=== PATIENT | female | born 1960 | race Caucasian/White ===

== ENCOUNTER 2018-01-07 08:11 | Inpatient (IN) | payer OTHER, SELFPAY ==
[2017-12-24 13:36] VITALS: BP 144/72; PULSE 81; RESP 16; TEMP 37.2; O2SAT 95; BMI 46.3
--- NOTE | 2017-12-24 13:45 | SDCEKG_ITS ---
Test Reason : Blood Pressure : / mmHG Vent. Rate : 062 BPM Atrial Rate : 062 BPM P-R Int : 182 ms QRS Dur : 074 ms QT Int : 384 ms P-R-T Axes : 053 020 058 degrees QTc Int : 389 ms Normal sinus rhythm Normal ECG Confirmed by ROEL MAYNARD MD ([id number]), editor book KATHI LAU ([id number]) on 12/28/2017 9:33:43 AM Referred By: Reddy Garcia Confirmed By:ROEL MAYNARD MD
[2017-12-24 14:15] LABS: Hemoglobin 12.5 g/dl (12.0-15.0); Mean Corp Hgb Conc 30.5 g/gl (32-36); Mean Corpuscular Hgb 24.8 pg (27.0-32.0); Mean Corpuscular Volume 81.3 fL (81-99); Mean Platelet Vol. 9.3 fl (6.2-12.0); Platelet Count 227 K/mm3 (150-450); RBC Distribution Width CV 13.7 % (11.6-14.6); RBC Distribution Width SD 40.7 fl (35.1-43.9); Red Blood Count 5.04 M/mm3 (4.2-5.4); White Blood Count 5.1 K/mm3 (4.4-11.0)
[2017-12-24 14:16] LABS: Scan Indicated on CBC? Y/N NO
[2017-12-24 14:38] LABS: Anion Gap 9 (5-15); BUN 14 mg/dL (7-18); BUN/Creat Ratio 12.2 RATIO (10-20); Calcium,Total 8.5 mg/dL (8.5-10.1); Chloride 106 mmol/L (98-107); Creatinine, Serum 1.15 mg/dL (0.55-1.02); EST Glomerular Filtration Rate 51 mL/min (>60); Est Glom Filt Rate - Afr Amer 62 mL/min (>60); Estimated Creatinine Clearance 45.48 ml/min; Glucose 93 mg/dL (74-106); Sodium Level 141 mmol/L (136-145)
[2018-01-07] VITALS (13 sets, daily range): BP systolic 94–144; BP diastolic 47–83; PULSE 74–102; RESP 16–18; TEMP 36.3–36.7; O2SAT 92–98; BMI 46.3; BMI 47.7
[2018-01-07] MEDS: Acetaminophen 500 MG Tablet 1000 MG PO ×3 (08:45→22:58)
[2018-01-07] MEDS: Lactated Ringers 1,000 ML 999 ML IV (09:12)
[2018-01-07] MEDS: Lactated Ringers 1,000 ML 125 ML IV ×2 (10:25→23:04)
[2018-01-07] MEDS: Scopolamine 1mg/72hr Patch 1 PATCH TD (10:30)
--- NOTE | 2018-01-07 10:30 | OP.PCM_ITS ---
Report of Operation Date of Procedure: 01/07/18 Pre-Operative Diagnosis: Severe end-stage osteoarthritis left knee. Morbid obesity Post-Operative Diagnosis: Same Surgery/Procedure Performed:: Total knee arthroplasty left Description of Surgical Findings:: Eburnation of bone, varus alignment, periarticular osteophytes consistent with tricompartmental osteoarthritis stock puller: Koby Santos Type of Anesthesia:: Spinal Anesthesiologist: Sohail Yanes Special Medications: txa Specimen's removed: Bone and soft tissue Estimated Blood Loss (mL): 100 Fluids Replaced: See anesthesia report Description of Procedure: Implants: Styker triathlon size 4 PS femur, 3 tibia, 32 mm patella all cemented with Simplex. 9 mm posterior stabilized articulating surface Indications: Patient has severe end-stage osteoarthritis diagnosed via x-rays in the knee. They have failed all forms of conservative measures including activity modification, injections, anti-inflammatories, use of assistive device. The patient has pain that affects on a daily basis and prevents him from doing things that they enjoyed. They have elected to undergo the above procedure. The risks of the procedure were discussed at length and their questions were answered. Procedure description: The patient was greeted in the preoperative area. The left knee was then marked with a surgical marker. Patient was then taken to or [address]. They were administered a dose of antibiotics as well as tranexamic acid. Once adequate anesthesia was obtained and airway was secured to placed in supine position on the operating room table. A well-padded tourniquet was placed on the affected extremity. Leg was then prepped and draped in the usual sterile fashion from the knee down. Ioban was used on the skin. Surgical timeout was then performed and confirmed with all present. Six-inch Esmarch was used to examine the limb and tourniquet was then inflated to 250 mmHg. A longitudinal incision was then planned and carried out in the anterior aspect of the knee. The dissection was then carried the length of the incision the extensor mechanism was identified. Standard medial parapatellar arthrotomy was then performed revealing severe eburnation of bone and periarticular osteophytes. There is complete loss of cartilage especially in the medial compartment with varus alignment. Anterior fat pad was removed for visualization purposes and the anterior medial aspect of the tibia was skeletonized for exposure to the knee. The knee was then flexed the patella was inverted. Opening reamer was then used in the femur approximately 1 cm anterior to the attachment of the PCL. The intramedullary valgus wand was then placed in the femur set at 5? of valgus. The distal femoral cutting jig was then applied to the femur with anticipated resection of approximately 8 mm. This was then made with a oscillating saw. The sizing guide was then placed referencing off the posterior condyles and also reference off the epicondylar axis. This was measured and the appropriate size 4-in-1 cutting jig was then applied to the distal femur. Anterior posterior cuts were made followed by the anterior and posterior chamfer cuts. These bony pieces and fragments were removed and placed on the back table. Posterior retractor was then utilized and the tibia was subluxed anteriorly. Extramedullary tibial alignment jig was then applied to the tibia referencing off the medial one third of the tibial tubercle the anterior tibial spine the middle aspect of the tibiotalar joint. Also reference off patient's pilot point slope. The tibial cutting jig was then pinned with anticipated resection of 2 mm off of the deficient medial tibial condyle. This cut was made with the oscillating saw. Once this was complete a laminar armature straightener was utilized in both medial lateral meniscus were removed and a posterior capsular osteophytes were also removed. Posterior capsule release was performed in the posterior capsule as well as the geniculate arteries are treated with the aqua Héctor. The tibia was incised and the appropriate sized tibial tray was then pinned. The femoral box cutting jig was then applied to the femur and the box was prepared removing a portion of the intercondylar notch. The femoral trial was then placed and the knee was trialed. Full flexion-extension were easily achieved. The knee seemed to balance quite nicely. Any remaining osteophytes were removed at this time. Once this was complete the patella was everted and the Kannan patella reaming device was then utilized the patella was then placed in the appropriate jig and reamer was then used to remove approximately 9 mm of the undersurface of the patella. A soft tissue remaining was in the way was removed and patella trial was then placed listed maintain excellent tracking using the no thumbs technique. The tibial tray at this point was punched to accommodate the fins of the final implant. At this point cement was mixed on the back table. The trial components were removed and the knee was copiously irrigated. Did use a cocktail of injection for postoperative pain control. The final components were then cemented in the standard fashion and excess cement was removed with cement removal tools and patellar clamp is placed in the patella. As the cement had cured in full extension tourniquet was deflated and hemostasis was perfect with Bovie cautery as well as the aqua Manus. Needle is once again trialed with different size polyethylenes to ensure the full range of motion was achieved as well as excellent balancing ligamentously was achieved. At this point the knee was copiously irrigated. Final implant was then inserted locking mechanism was engaged and confirmed to be locked. The arthrotomy was then closed with #1 Vicryl aggravate type fashion interrupted. Subcutaneous tissue was closed with 0 Vicryl and surgical jelena were placed in the skin. A occlusive silver impregnated dressing was then applied followed by well-padded sterile dressing secured with an Ernesto wrap. The patient was taken to the PACU in stable condition. No complications known at this time. Postoperatively we will maintain standard total knee postoperative protocol. The use of the physician development assistant was integral during this procedure. They assisted with positioning placement of the tourniquet retracting closure and placement of the dressing. The procedure would have been much more difficult without their expertise and assistance - Admit VTE Documentation VTE Present on Admission: Yes VTE Mechan Device Prophylaxis: SCD's, Thigh High BETINA Hose VTE Pharm Prophylaxis ordered?: Yes
[2018-01-07] MEDS: Aspirin 325 MG Tablet PO (16:42)
[2018-01-07] MEDS: Cefazolin 1 GM/50 ML BAG IV (18:50)
[2018-01-07] MEDS: oxyCODONE 5 MG Tablet PO (20:21)
[2018-01-07] MEDS: Venlafaxine XR 150 MG Capsule PO (22:58)
[2018-01-07] MEDS: Senna/Docusate Sodium 1 Tablet 2 TABLET PO (22:59)
[2018-01-07] MEDS: oxyCODONE HCl Cr 10 MG Tablet PO (23:02)
[2018-01-07] MEDS: Temazepam 15 MG Capsule 30 MG PO (23:03)
[2018-01-08] MEDS: Lactated Ringers 1,000 ML 125 ML IV
[2018-01-08 02:00] VITALS: BP 122/79; PULSE 81; RESP 16; TEMP 36.4; O2SAT 94
[2018-01-08] MEDS: Cefazolin 1 GM/50 ML BAG IV (02:26)
[2018-01-08] MEDS: oxyCODONE 5 MG Tablet PO ×3 (03:35→17:41)
[2018-01-08] MEDS: 0.9% NaCl Peripheral Flush Adult/Peds IV (03:38)
[2018-01-08 06:16] LABS: Hematocrit 34.2 % (37-47); Hemoglobin 10.3 g/dl (12.0-15.0); Mean Corp Hgb Conc 30.1 g/gl (32-36); Mean Corpuscular Hgb 25.1 pg (27.0-32.0); Mean Corpuscular Volume 83.4 fL (81-99); Mean Platelet Vol. 9.6 fl (6.2-12.0); Platelet Count 105 K/mm3 (150-450); RBC Distribution Width CV 14.3 % (11.6-14.6); White Blood Count 5.4 K/mm3 (4.4-11.0)
[2018-01-08 06:25] LABS: Scan Indicated on CBC? Y/N NO
[2018-01-08] MEDS: Acetaminophen 500 MG Tablet 1000 MG PO ×3 (06:27→21:05)
[2018-01-08 06:32] LABS: Anion Gap 8 (5-15); BUN 9 mg/dL (7-18); BUN/Creat Ratio 9.3 RATIO (10-20); Chloride 103 mmol/L (98-107); Creatinine, Serum 0.97 mg/dL (0.55-1.02); EST Glomerular Filtration Rate 63 mL/min (>60); Est Glom Filt Rate - Afr Amer 76 mL/min (>60); Estimated Creatinine Clearance 53.92 ml/min; Glucose 117 mg/dL (74-106); Potassium 3.7 mmol/L (3.5-5.1); Sodium Level 141 mmol/L (136-145)
--- NOTE | 2018-01-08 07:39 | PCM.PN.ORT ---
Subjective: Patient sitting up in bed eating breakfast. Patient states her knee is very painful. Also having pain in the area of the tourniquet. Patient denies chest pain, shortness breath, calf pain, nausea vomiting. Objective: Dressing is clean dry intact. Her thigh is tender to touch but is soft. The calf is nontender negative signs and symptoms of DVT. No pain with plantar flexion dorsiflexion of the foot and ankle. Patient is afebrile. Vital signs labs within normal limits. - Physical Exam General: Alert, Oriented x3, Cooperative HEENT: PERRLA Oral: Moist Mucosa Neurological: Cranial nerves II-XII grossly intact Psych/Mental Status: Normal Affect, Alert and oriented to time, place, person, mood and affect Vital Signs Temp Pulse Resp BP Pulse Ox 97.5 F L 81 16 122/79 H 94 01/08/18 02:00 01/08/18 02:00 01/08/18 02:00 01/08/18 02:00 01/08/18 02:00 Oxygen Delivery Method Room Air Weight: 126.2 kg Body Mass Index (BMI) 47.7 Intake and Output for Last 24 Hours 01/06/18 01/07/18 01/08/18 23:59 23:59 23:59 Intake Total 1999 / 1999 2258 / 2258 Output Total 500 / 500 1000 / 1000 Balance 1500 / 1500 1258 / 1258 Laboratory Tests Past 24 Hrs 01/08/18 01/08/18 05:45 05:45 WBC 5.4 RBC 4.10 L Hgb 10.3 L Hct 34.2 L MCV 83.4 MCH 25.1 L MCHC 30.1 L RDW 14.3 RDW Differential 44.0 H Plt Count 105 L MPV 9.6 Sodium 141 Potassium 3.7 Chloride 103 Carbon Dioxide 30.0 Anion Gap 8 BUN 9 Creatinine 0.97 Estim Creat Clear Calc 53.92 Est GFR (MDRD) Af Amer 76 Est GFR (MDRD) Non-Af 63 BUN/Creatinine Ratio 9.3 L Glucose 117 H Calcium 8.0 L Medical Necessity - Tobacco Use Smoking Status: Never smoker Tobacco Use: Non-smoker Assessment/Plan Status post left total knee Morbid obesity Plan 1. Continue pain medications as prescribed 2. Begin physical therapy, weight-bear as tolerated, with walker 3. Aspirin 325 mg 1 p.o. every 12 hours ?30 days for postop DVT prophylaxis 4. Encourage incentive spirometry 5. Possible discharge home tomorrow
[2018-01-08] MEDS: oxyCODONE HCl Cr 10 MG Tablet PO ×2 (08:33→21:04)
[2018-01-08] MEDS: Aspirin 325 MG Tablet PO ×2 (08:34→17:40)
[2018-01-08] MEDS: Senna/Docusate Sodium 1 Tablet 2 TABLET PO ×2 (08:34→21:03)
[2018-01-08] MEDS: Famotidine 20 MG Tablet PO (08:34)
[2018-01-08 08:36] VITALS: BP 137/80; PULSE 96; RESP 16; TEMP 36.8; O2SAT 94
--- NOTE | 2018-01-08 11:10 | CASEMGMT ---
BELIA VELASQUEZ Face to Face with patient for initial transition planning/care coordination assessment. BELIA VELASQUEZ introduced self and role at [facility]. Patient lying in bed, alert and oriented. Patient willing to participate in assessment and is able to answer all questions appropriately. Care providers, pharmacy, and demographics verified. Patient lives alone in a condo. Patient states that her neice will being staying with her for a few days when she discharge. Patient states she has cane and walker at home. Pt wishes to discharge home and is setup with [facility] for [facility] therapy with [facility] providing transportation. Patient states he has no further needs or concerns at this time. CM to follow for discharge planning needs that may arise. Disposition Plan: Patient to discharge home with outpatient therapy, family support, and follow-up plans in place.
[2018-01-08 11:58] VITALS: BP 147/74; PULSE 92; RESP 16; TEMP 37.2; O2SAT 96
[2018-01-08 14:38] VITALS: BP 148/75; PULSE 93; RESP 16; TEMP 37.3; O2SAT 98
[2018-01-08 20:31] VITALS: BP 145/68; PULSE 92; RESP 16; TEMP 37.2; O2SAT 95
[2018-01-08] MEDS: ALPRAZolam 0.5 MG Tablet PO (20:32)
--- NOTE | 2018-01-08 21:00 | NUR.TO.PHY ---
Up to BR with one assist. Patient toe touching with affected knee, not straightening leg or bearing much weight. Attempted to explain to patient that she needed to move/bend leg to promote healing and mobility but patient not agreeable. Once in bed assisted patient to perform heel slide. Patient is only able to slightly bend knee off of bed.
[2018-01-08] MEDS: Temazepam 15 MG Capsule 30 MG PO (21:05)
[2018-01-08] MEDS: Venlafaxine XR 150 MG Capsule PO (21:05)
[2018-01-09 02:30] VITALS: BP 150/76; PULSE 92; RESP 16; TEMP 37.2; O2SAT 94
[2018-01-09] MEDS: oxyCODONE 5 MG Tablet PO ×3 (02:41→13:51)
[2018-01-09] MEDS: Acetaminophen 500 MG Tablet 1000 MG PO ×2 (05:26→13:51)
[2018-01-09 06:25] LABS: Hematocrit 33.7 % (37-47); Hemoglobin 10.8 g/dl (12.0-15.0); Mean Corpuscular Hgb 26.2 pg (27.0-32.0); Mean Corpuscular Volume 81.8 fL (81-99); Mean Platelet Vol. 10.1 fl (6.2-12.0); Platelet Count 121 K/mm3 (150-450); RBC Distribution Width CV 13.9 % (11.6-14.6); RBC Distribution Width SD 40.4 fl (35.1-43.9); Red Blood Count 4.12 M/mm3 (4.2-5.4); White Blood Count 6.8 K/mm3 (4.4-11.0)
[2018-01-09 06:26] LABS: Scan Indicated on CBC? Y/N NO
[2018-01-09 08:39] VITALS: BP 144/71; PULSE 98; RESP 18; TEMP 37.1; O2SAT 99
[2018-01-09] MEDS: Aspirin 325 MG Tablet PO (08:44)
--- NOTE | 2018-01-09 09:27 | PCM.PN.ORT ---
Subjective: Patient sitting up in bed. Pain well managed. No other complaints. Denies chest pain, shortness breath, calf pain, nausea vomiting. Ready for discharge home. Objective: Dressings clean dry intact. Negative signs and symptoms of DVT. Afebrile neurovascular is otherwise intact. Vital signs labs within normal limits. - Physical Exam General: Alert, Oriented x3, Cooperative HEENT: PERRLA Neurological: Cranial nerves II-XII grossly intact Psych/Mental Status: Normal Affect, Alert and oriented to time, place, person, mood and affect Vital Signs Temp Pulse Resp BP Pulse Ox 98.7 F 98 18 144/71 H 99 01/09/18 08:39 01/09/18 08:39 01/09/18 08:39 01/09/18 08:39 01/09/18 08:39 Oxygen Delivery Method Room Air Weight: 126.2 kg Body Mass Index (BMI) 47.7 Intake and Output for Last 24 Hours 01/07/18 01/08/18 01/09/18 23:59 23:59 23:59 Intake Total 1999 / 1999 3558 / 3558 1300 / 1300 Output Total 500 / 500 1600 / 1600 Balance 1500 / 1500 1958 / 1958 1300 / 1300 Laboratory Tests Past 24 Hrs 01/09/18 05:58 WBC 6.8 RBC 4.12 L Hgb 10.8 L Hct 33.7 L MCV 81.8 MCH 26.2 L MCHC 32.0 RDW 13.9 RDW Differential 40.4 Plt Count 121 L MPV 10.1 Medical Necessity - Tobacco Use Smoking Status: Never smoker Tobacco Use: Non-smoker Assessment/Plan Status post left total knee Morbid obesity Plan 1. Continue pain medications as prescribed 2. Continue physical therapy at [facility], weight-bear as tolerated, with walker 3. Aspirin 325 mg 1 p.o. every 12 hours ?30 days for postop DVT prophylaxis 4. Follow-up as scheduled, see pink sheet 5. Discharge home today
--- NOTE | 2018-01-09 09:35 | DCINST_ITS ---
Discharge Diet: No Restrictions Discharge Activity: May Not Drive, May Shower, Use Walker May shower in (days): 1 Ice area for (Minutes): 20 - each hour while awake. Weight Bearing Status: Weight bearing as tolerated Elevate: Operative Extremity Additional Activity Instructions:: Wear elastic stockings for 2 weeks after your surgery. Call your doctor if your incision/area has: Continuous Slow Oozing, Sudden Increased Bleeding, Increased Pain/ Swelling, Increased Redness, Foul Smelling Discharge Call your doctor if you observe: Fever of 101 or Higher, Coldness, Increased Pain - in extremity, Numbness or Tingling, Change in Color, Calf discomfort, Uncontrolled pain Change Dressing in (Days):: 0 - and daily as needed. Remove Dressing in (days):: 8 Cleanse incision/area with: Soap & Water Allergies/Adverse Reactions: Allergies adhesive tape Allergy (Verified 12/24/17 13:21) Rash amoxicillin [From Augmentin] Adverse Reaction (Verified 12/24/17 13:21) Upset Stomach clavulanic acid [From Augmentin] Adverse Reaction (Verified 12/24/17 13:21) Upset Stomach dicyclomine [From Bentyl] Adverse Reaction (Verified 12/24/17 13:21) restless meperidine [From Demerol] Adverse Reaction (Verified 12/24/17 13:21) hallucinations metoclopramide [From Reglan] Adverse Reaction (Verified 12/24/17 13:21) restless morphine Adverse Reaction (Verified 12/24/17 13:18) Nausea prochlorperazine [From Compazine] Adverse Reaction (Verified 12/24/17 13:21) restless promethazine [From Phenergan] Adverse Reaction (Verified 12/24/17 13:21) restless sertraline [From Zoloft] Adverse Reaction (Verified 12/24/17 13:21) dizzy Medications to take at Discharge ALPRAZolam [Xanax] 0.5 - 1 mg PO BID PRN 12/24/17 Famotidine [Pepcid AC] 20 mg PO QHS 12/24/17 Temazepam [Restoril] 30 mg PO QHS 12/24/17 Venlafaxine XR [Effexor Xr] 150 mg PO QHS 12/24/17 Acetaminophen [Tylenol] 1,000 mg PO Q8 #90 tab 01/09/18 Aspirin 325 mg PO BIDCM #60 tab 01/09/18 Oxycodone CR [Oxycontin] 10 mg PO BID 7 Days #14 tab 01/09/18 Oxycodone [Oxyir] 5 - 10 mg PO Q6H PRN PRN 7 Days #80 tab 01/09/18 The following prescriptions were given: Oxycodone [Oxyir] 5 - 10 mg PO Q6H PRN PRN 7 Days #80 tab PRN Reason: Mod-Severe Pain (-04/10) Acetaminophen [Tylenol] 1,000 mg PO Q8 #90 tab Aspirin 325 mg PO BIDCM #60 tab Oxycodone CR [Oxycontin] 10 mg PO BID 7 Days #14 tab Primary Care Physician: Eliseo Longoria MD [Primary Care Provider] - Test Results: Test results from this visit will be discussed in further detail at your follow- up appointment, if applicable. Please Follow Up With: Reddy Garcia, DO When: as scheduled
[2018-01-09 10:30] VITALS: PULSE 76
[2018-01-09] MEDS: oxyCODONE HCl Cr 10 MG Tablet PO (10:33)
[2018-01-09] MEDS: Senna/Docusate Sodium 1 Tablet 2 TABLET PO (10:34)
[2018-01-09] MEDS: Famotidine 20 MG Tablet PO (10:34)
[2018-01-09 13:57] VITALS: BP 156/73; PULSE 104; RESP 18; TEMP 36.8; O2SAT 97
== END 2018-01-09 15:05 | disposition home or self-care (01) | DRG 470 ==
LOC: ACINP 08:17 → MS3 14:43
PROVIDERS: Admitting Provider Orthopaedic Surgery; Visit Provider Orthopaedic Surgery
PROC: 0SRD0J9 Replacement of Left Knee Joint with Synthetic Substitute, Cemented, Open Approach (ICD-10-PCS; CPT 27447; principal; 2018-01-07 09:50)
DX: M17.12 Unilateral primary osteoarthritis, left knee (principal); Z68.42 Body mass index [BMI] 45.0-49.9, adult; E66.01 Morbid (severe) obesity due to excess calories
CPT/HCPCS: 36415; 80048; 85027; 87081; 93005; 97116; 97162; 97165; 97530; C1776; J7120; A4216; J2405

== ENCOUNTER → 2018-02-05 14:25 | Outpatient (CLI) | payer OTHER, SELFPAY ==
[2018-02-05 15:31] LABS: Absolute Lymphocyte Count 1.92 X10^3/ul (0.83-4.51); Absolute Neutrophil Count 2.9 X10^3/uL (2.0-7.7); Basophil# 0.05 X10^3/uL; Basophil% 0.9 % (0-1); Eosinophils% 8.6 % (0-5); Hematocrit 37.3 % (37-47); Hemoglobin 11.1 g/dl (12.0-15.0); Lymphocyte # 1.92 X10^3/ul (4.0); Lymphocyte % 33.1 % (19-41); Mean Corp Hgb Conc 29.8 g/gl (32-36); Mean Corpuscular Hgb 24.3 pg (27.0-32.0); Mean Corpuscular Volume 81.8 fL (81-99); Mean Platelet Vol. 9.7 fl (6.2-12.0); Monocyte# 0.39 X10^3/uL; Monocyte% 6.7 % (0-10); Neutrophil # 2.94 X10^3/uL (2.7-7.7); Neutrophil % 50.7 % (47-70); Platelet Count 213 K/mm3 (150-450); RBC Distribution Width CV 14.1 % (11.6-14.6); RBC Distribution Width SD 42.1 fl (35.1-43.9); Red Blood Count 4.56 M/mm3 (4.2-5.4); White Blood Count 5.8 K/mm3 (4.4-11.0)
[2018-02-05 15:38] LABS: POSITIVE COUNT NO; POSITIVE DIFFERENTIAL NO; POSITIVE MORPHOLOGY NO
[2018-02-05 16:34] LABS: Erythrocyte Sedimentation Rate 49 mm/hr (0-30)
== END ==
PROVIDERS: Visit Provider Orthopaedic Surgery
DX: Z96.652 Presence of left artificial knee joint (principal)
CPT/HCPCS: 36415; 85025; 85652; 86140

== ENCOUNTER → 2018-02-12 14:03 | Outpatient (CLI) | payer OTHER, SELFPAY ==
[2018-02-12 14:11] LABS: Pathologist Comment May follow
[2018-02-12 16:03] LABS: RBC /Synovial Fluid 0.034 10^6/uL (0); Synovial Fld Mononuclear WBC % 49.5 %; Synovial Fld Polynuclear WBC # 0.187 10^3/ul; Synovial Fld Polynuclear WBC % 50.5 %
[2018-02-12 17:57] LABS: AUTO B FLUID DILUENT BKGD CT WBC <0.1 RBC <0.01 (W<.1,R<.01); Lymph 30 %; Monocyte /Synovial Fluid 19 %; Neutrophil 51 % (0-25)
[2018-02-12 18:06] LABS: Source- Body Fluid SYNOVIAL
[2018-02-12 18:09] LABS: Source / Synovial Fluid LEFT KNEE; Viscosity / Synovial Fluid Sl. Viscous (HIGH)
[2018-02-12 18:12] LABS: Appearance /Synovial Fluid Turbid (CLEAR); Color / Synovial Fluid Red (Pale Yellow)
[2018-02-12 19:01] LABS: Body Fluid QC Type(s) BF1Q,BF2Q
[2018-02-13 15:06] LABS: Pathologist Review Reviewed
== END ==
PROVIDERS: Visit Provider Orthopaedic Surgery
DX: Z96.652 Presence of left artificial knee joint (principal)
CPT/HCPCS: 87070; 87075; 87205; 89050; 89051; 89060

== ENCOUNTER → 2018-05-28 18:49 | Outpatient (CLI) | payer OTHER, SELFPAY ==
[2018-01-07 14:49] VITALS: BMI 47.7
--- NOTE | 2018-05-28 15:00 | MISC_PTH ---
PATIENT: KRANTHI CHEEMA LOC: [facility] U#:[id number] AGE/SX: 64/F ROOM: RE05/28/[address]: Dr. Anu Russell MD : [id number] BED: DIS: SPEC #: [id number] RECD: 05/28/18 17:36 STATUS: FARIBA MYRNA #: [id number] ELIECER: 05/28/18 15:[address]: Anu Prather DEPT: SURGICAL PATHOLOGY RECD BY: Ivy Gutierres ENTERED: 05/29/18 10:57 SP TYPE: MISC TESSIE DR: Dr. Eliseo Longoria MD Tissues: A - Labial gland, NOS B - Perianal tissue Procedures: Special Stain Group I Surgery Specimen Level IV GMS Stain (control) HEADER OPERATION: Punch biopsy PRE-OP DIAGNOSIS: N76.6, L90.0 TISSUE SUBMITTED: A. Left labia, B. Left perianal MICROSCOPIC DIAGNOSIS A. Left labia, punch biopsy: Superficial fragment of epidermis with hyperkeratosis. A fragment of blood clot. Special stain for fungi is negative for organisms; matched control is appropriate. B. Left perianal, punch biopsy: Consistent with lichen sclerosus. Hyperkeratosis and superficial acute inflammation. Special stain for fungi is negative for organisms; matched control is appropriate. SJ:rg 05/30/18 COMMENT Case has been reviewed in consultation with Dr. Braxton who concurs with the above diagnosis. IDC:AM MICROSCOPIC DESCRIPTION Slides are reviewed. GROSS DESCRIPTION A - Received in fixative is one container labeled with the patient's name and designated left labia. The specimen consists of two fragments of michel-brownish soft tissue that in aggregate measure 1 x 0.1 x 0.1 cm. The specimen is totally submitted in one cassette. B - Received in fixative is one container labeled with the patient's name and designated left perianal. The specimen consists of a punch biopsy of michel-white skin measuring 0.2 cm in diameter and 0.3 cm in length. The specimen is totally submitted in one cassette. / IVON:jagdeep 05/29/18 TC:5 CPT: 03302 x2, 64192 x2
--- OUTSIDE RECORDS SUMMARY | 2018-07-24 10:03 | XMS RPT_ITS ---
:1960 Author Organization OH[facility] Care Team Providers Name Role Phone MURALI NUNES, DR. BLAIR Costello Primary Care Unavailable ANNIKA MORRIS Attending Unavailable ANNIKA MORRIS Referring Unavailable Anu Jorge Attending Unavailable Reddy Garcia Admitting Unavailable Reddy Garcia Attending Unavailable Reddy Garcia Referring Unavailable Blair Longoria Primary Care Unavailable Mario Sky Attending Unavailable Reddy Garcia Referring Unavailable Reddy Garcia Attending Unavailable Reddy Garcia Referring Unavailable Blair Longoria Primary Care Unavailable Sandy SpringReddy Attending Unavailable Sandy Spring, Reddy Referring Unavailable LongoriaBlair ugalde Primary Care Unavailable Anu Jorge Attending Unavailable Blair Longoria Primary Care Unavailable Anu Jorge Referring Unavailable PROBLEMS PROBLEMS DATE TYPE CONDITION / CODE ATTENDING STATUS SOURCE 06/11/2018 Unknown N76.6 - Ulceration Merritt-Drew, Active [place] of vulva / [facility] N76.6(ICD-10) Hospital Repository 02/12/2018 Unknown Z96.652 - Presence Reddy Garcia Active [place] [facility] left [facility] Hospital Z96.652(ICD-10) Repository 01/09/2018 Unknown G89.18 - Other acute Reddy Garcia Active [place] postprocedural pain [facility] / G89.18(ICD-10) Hospital Repository 01/16/2018 Unknown Z01.810 - Encounter Jose Daniel, [place] Active [place] for preprocedural [facility] cardiovascular Hospital examination / Repository Z01.810(ICD-10) 07/09/2017 Unknown N77.1 - Vaginitis, Ania, Active [place] vulvitis and [facility] vulvovaginitis in Hospital diseases classified Repository elsewhere / N77.1(ICD-10) PROCEDURES PROCEDURES No Procedure Records FoundRESULTS RESULTS MISCELLANEOUS SPECIMEN Observed: 05/28/2018 Status: F Source: EFREN 3:00 PM [facility] HOSPITAL REPOSITORY Patient: KRANTHI CHEEMA : 1960 (57/F) Acct Num: [id number] Phys: Ania CABRERA,Summer Unit Num: [id number] Loc: LABSPEC Specimen: [id number] Received: 05/28/181735 Spec Type: MISC TISSUES 1 TISSUES: A. Labial gland, NOS B. Perianal tissue COMMENT Case has been reviewed in consultation with Dr. Braxton who concurs with the above diagnosis. IDC:AM GROSS DESCRIPTION A - Received in fixative is one container labeled with the patient's name and designated left labia. The specimen consists of two fragments of michel-brownish soft tissue that in aggregate measure 1 x 0.1 x 0.1 cm. The specimen is totally submitted in one cassette. B - Received in fixative is one container labeled with the patient's name and designated left perianal. The specimen consists of a punch biopsy of michel- white skin measuring 0.2 cm in diameter and 0.3 cm in length. The specimen is totally submitted in one cassette. / IVON:jagdeep 05/29/18 TC:5 CPT: 44319 x2, 85292 x2 HEADER OPERATION: Punch biopsy PRE-OP DIAGNOSIS: N76.6, L90.0 TISSUE SUBMITTED: A. Left labia, B. Left perianal MICROSCOPIC DESCRIPTION Slides are reviewed. MICROSCOPIC DIAGNOSIS A. Left labia, punch biopsy: Superficial fragment of epidermis with hyperkeratosis. A fragment of blood clot. Special stain for fungi is negative for organisms; matched control is appropriate. B. Left perianal, punch biopsy: Consistent with lichen sclerosus. Hyperkeratosis and superficial acute inflammation. Special stain for fungi is negative for organisms; matched control is appropriate. SJ:jagdeep 05/30/18 Signed Sundar Zamora 05/30/18 <signature on file> Performed By: #### PMISC #### [facility] [address] [place], [place], [address] MISCELLANEOUS LAB Collected: 05/28/2018 Status: F Source: E[place] PROCEDURE 3:00 PM [facility] [place] Order Comment: Comments: VAGINITIS #[id number] - APTIMA Test(s) Ordered: VAGINITIS #[id number] - APTIMA TYPE CODE TESTS RESULT OUT OF RANGE REFERENCE UNITS LAB L801.1541 Normal [facility] [place] Result Comment: TEST RESULT UNITS REFERENCE INTERVAL NuSwab Vaginitis (VG) Bacterial Vaginosis, RUTH Atopobium vaginae Low - 0 Score BVAB 2 Low - 0 Score Megasphaera 1 Low - 0 Score Total Score, add three scores Calculate total score by adding the 3 individual bacterial vaginosis (BV) marker scores together. Total score is interpreted as follows: Total score 0-1: Indicates the absence of BV. Total score 2: Indeterminate for BV. Additional clinical data should be evaluated to establish a diagnosis. Total score 3-6: Indicates the presence of BV. This test was developed and its performance characteristics determined by [facility]. It has not been cleared or approved by the Food and Drug Administration. The FDA has determined that such clearance or approval is not necessary. Sindy albicans, RUTH Negative Negative Sindy glabrata, RUTH Negative Negative This test was developed and its performance characteristics determined by [facility]. It has not been cleared or approved by the Food and Drug Administration. The FDA has determined that such clearance or approval is not necessary. Trich vag by RUTH Negative Negative TESTING PERFORMED AT [facility]. ORIGINAL REPORT ON FILE IN LAB CONTAINS ADDITIONAL TEST SITE INFORMATION. Performed By: #### L801.1541 #### [facility] [address] [place], [address] SYNOVIAL FLUID RBC, Collected: 02/12/2018 Status: F Source: [place] WBC AND DIFF 2:07 PM [facility] [place] TYPE CODE TESTS RESULT OUT OF RANGE REFERENCE UNITS LAB L200.5050 0.000-0.000 10 3 uL High SYN Tot 0.[address] Result Comment: This is the Total Number of Nucleated Cell Types in the Body Fluid. LAB L200.5100 0 10 6/uL High SYNOVIAL RBC 0.034 LAB L200.5200 0.000-0 10 3uL High .002 SYNOVIAL WBC 0.3700 LAB L200.5260 % SYBF PMN Normal WBC% 50.5 LAB L200.5270 10 3/ul SYBF PMN Normal WBC# 0.187 LAB L200.5280 % SYBF MN Normal WBC% 49.5 LAB L200.5800 PATH Normal COM/SYFL May follow LAB L200.5300 0-25 % High NEUTROPHIL 51 LAB L200.5400 % LYMPH Normal 30 LAB L200.5500 % MONO Normal 19 LAB L200.4600 SYNOVIAL Normal SOURCE LEFT KNEE Result Comment: UNSURE OF LOCATION. NO LOCATION GIVEN ON ORDER. PER PT REPORT SURGERY WAS DONE ON LEFT KNEE. LAB L200.4800 HIGH VISCOSITY/SYFL Normal Sl. Viscous LAB L200.4900 Pale Yellow SYNOVIAL COLOR Normal Red LAB L200.5000 CLEAR SYNOVIAL ERUM. Normal Turbid Performed By: #### L200.0400, L200.4175 #### [facility] [address] [place], [address] CRYSTALS, BODY FLUID Collected: 02/12/2018 Status: C Source: [place] 2:07 PM [facility] [place] TYPE CODE TESTS RESULT OUT OF RANGE REFERENCE UNITS LAB L200.4225 Normal SYNOVIAL SOURCE/BF LAB L200.6020 Normal PATH Reviewed REV Result Comment: Negative for malignant cells and crystals. Sundar Zamora M.D. 02/13/18 AMENDED REPORT 02/13/18 1506 PATH REV previously reported as: Will follow LAB L200.4200 Normal CRYSTALS/BF SEE PATH REV Performed By: #### L200.0400, L200.4175 #### [facility] [address] [place], [address] Observed: 02/12/2018 Status: F Source: EFREN CULTURE, BODY FLUID 2:07 PM [facility] [place] List Antibiotics Last 48 Hours? U List Antibiotics to be Started? U Gram Stain Centrifuged Specimen? Unable to centrifuge specimen due to insufficient volume. Gram Stain 2+ White Blood Cells No organisms seen Body Fluid Cult NO GROWTH IN 14 DAYS Cult, Anaerobic No anaerobic bacteria isolated. Performed By: #### M100.1300 #### [facility] [address] [place], [address] CRP Collected: 02/05/2018 Status: F Source: [place] 2:36 PM [facility] [place] TYPE CODE TESTS RESULT OUT OF RANGE REFERENCE UNITS LAB L501.6710 0.0-3.0 mg/L High 61.30 C-REACTIVE PROT Result Comment: C-Reactive Protein (CRP) provides useful information for the diagnosis, therapy and monitoring of inflammatory processes and associated diseases. For the evaluation of Relative Risk for Cardiovascular Disease, a High Sensitivity CRP (HSCRP) should be ordered. Performed By: #### L501.6710 #### [facility] [address] [place], [place], [address] CBC W/DIFF, AUTOMATED Collected: 02/05/2018 Status: F Source: [place] 2:36 PM [facility] TYPE CODE TESTS RESULT OUT OF RANGE REFERENCE UNITS LAB L100.1000 4.4-11.0 K/mm3 Normal WBC 5.8 LAB L100.1200 4.2-5.4 M/mm3 Normal RBC 4.56 LAB L100.1300 12.0-15.0 g/dl Low HGB 11.1 LAB L100.1400 37-47 % Normal HCT 37.3 LAB L100.1500 81-99 fL Normal MCV 81.8 LAB L100.1600 27.0-32.0 pg Low MCH 24.3 LAB L100.1700 32-36 g/gl Low MCHC 29.8 LAB L100.1810 11.6-14.6 % Normal RDW CV 14.1 LAB L100.1820 35.1-43.9 fl Normal RDW SD 42.1 LAB L100.1900 150-450 K/mm3 Normal PLT 213 LAB L100.2000 6.2-12.0 fl Normal MPV 9.7 LAB L100.2100 47-70 % Normal NEUT% 50.7 LAB L100.2200 19-41 % Normal LY% 33.1 LAB L100.2300 0-10 % Normal MONO% 6.7 LAB L100.2400 0-5 % High EO% 8.6 LAB L100.2500 0-1 % Normal BASO% 0.9 LAB L100.2550 0.0-0.9 % Normal IM GRAN % 0.000 Result Comment: IG% - Immature Granulocytes (promyelocytes, myelocytes and metamyelocytes) > 1% indicates that a LEFT SHIFT is Present. LAB L100.2620 2.0-7.7 X10 3/uL Normal Absolute Neut 2.9 LAB L100.2720 0.83-4.51 X10 3/ul Normal Absolute Lymph 1.92 Performed By: #### L100.0100, L101.9900 #### [facility] [address] [place], [address] ERYTHROCYTE SED RATE Collected: 02/05/2018 Status: F Source: [place] 2:36 PM [facility] [place] TYPE CODE TESTS RESULT OUT OF RANGE REFERENCE UNITS LAB L102.0000 0-30 mm/hr High SED RATE 49 Performed By: #### L100.0100, L101.9900 #### [facility] [address] [place], [address] DISCHARGE INSTRUCTION Observed: 01/09/2018 Status: F Source: [place] 9:35 AM [facility] [place] [facility] Medical Records Department [address] [place] [address] Instructions for Home/Discharge Instructions 01/09/18 0933 MR#: [id number] Acct: [id number] Name: KRANTHI CHEEMA Rep #: [id number] : 1960 57 From: Koby Santos PA-C PCP: Blair Longoria MD Status: ADM IN Discharge Diet: No Restrictions Discharge Activity: May Not Drive, May Shower, Use Walker May shower in (days): 1 Ice area for (Minutes): 20 - each hour while awake. Weight Bearing Status: Weight bearing as tolerated Elevate: Operative Extremity Additional Activity Instructions:: Wear elastic stockings for 2 weeks after your surgery. Call your doctor if your incision/area has: Continuous Slow Oozing, Sudden Increased Bleeding, Increased Pain/ Swelling, Increased Redness, Foul Smelling Discharge Call your doctor if you observe: Fever of 101 or Higher, Coldness, Increased Pain - in extremity, Numbness or Tingling, Change in Color, Calf discomfort, Uncontrolled pain Change Dressing in (Days):: 0 - and daily as needed. Remove Dressing in (days):: 8 Cleanse incision/area with: Soap AND Water Allergies/Adverse Reactions: Allergies adhesive tape Allergy (Verified 12/24/17 13:21) Rash amoxicillin [From Augmentin] Adverse Reaction (Verified 12/24/17 13:21) Upset Stomach clavulanic acid [From Augmentin] Adverse Reaction (Verified 12/24/17 13:21) Upset Stomach dicyclomine [From Bentyl] Adverse Reaction (Verified 12/24/17 13:21) restless meperidine [From Demerol] Adverse Reaction (Verified 12/24/17 13:21) hallucinations metoclopramide [From Reglan] Adverse Reaction (Verified 12/24/17 13:21) restless morphine Adverse Reaction (Verified 12/24/17 13:18) Nausea prochlorperazine [From Compazine] Adverse Reaction (Verified 12/24/17 13:21) restless promethazine [From Phenergan] Adverse Reaction (Verified 12/24/17 13:21) restless sertraline [From Zoloft] Adverse Reaction (Verified 12/24/17 13:21) dizzy Medications to take at Discharge ALPRAZolam [Xanax] 0.5 - 1 mg PO BID PRN 12/24/17 Famotidine [Pepcid AC] 20 mg PO QHS 12/24/17 Temazepam [Restoril] 30 mg PO QHS 12/24/17 Venlafaxine XR [Effexor Xr] 150 mg PO QHS 12/24/17 Acetaminophen [Tylenol] 1,000 mg PO Q8 #90 tab 01/09/18 Aspirin 325 mg PO BIDCM #60 tab 01/09/18 Oxycodone CR [Oxycontin] 10 mg PO BID 7 Days #14 tab 01/09/18 Oxycodone [Oxyir] 5 - 10 mg PO Q6H PRN PRN 7 Days #80 tab 01/09/18 The following prescriptions were given: Oxycodone [Oxyir] 5 - 10 mg PO Q6H PRN PRN 7 Days #80 tab PRN Reason: Mod-Severe Pain (4-04/10) Acetaminophen [Tylenol] 1,000 mg PO Q8 #90 tab Aspirin 325 mg PO BIDCM #60 tab Oxycodone CR [Oxycontin] 10 mg PO BID 7 Days #14 tab Primary Care Physician: Blair Longoria MD [Primary Care Provider] - Test Results: Test results from this visit will be discussed in further detail at your follow-up appointment, if applicable. Please Follow Up With: Reddy Garcia DO When: as scheduled 01/09/18 0935 <Electronically signed by Koby Santos PA-C> Date Koby Santos PA-C CC: Blair Longoria MD CBC-COMPLETE BLOOD CNT Collected: 01/09/2018 Status: F Source: E[place] NO DIFF 5:58 AM [facility] [place] TYPE CODE TESTS RESULT OUT OF RANGE REFERENCE UNITS LAB L100.1000 4.4-11.0 K/mm3 Normal WBC 6.8 LAB L100.1200 4.2-5.4 M/mm3 Low RBC 4.12 LAB L100.1300 12.0-15.0 g/dl Low HGB 10.8 LAB L100.1400 37-47 % Low HCT 33.7 LAB L100.1500 81-99 fL Normal MCV 81.8 LAB L100.1600 27.0-32.0 pg Low MCH 26.2 LAB L100.1700 32-36 g/gl Normal MCHC 32.0 LAB L100.1810 11.6-14.6 % Normal RDW CV 13.9 LAB L100.1820 35.1-43.9 fl Normal RDW SD 40.4 LAB L100.1900 150-450 K/mm3 Low PLT 121 LAB L100.2000 6.2-12.0 fl Normal MPV 10.1 Performed By: #### L100.0500 #### [facility] [address] [place], [place], [address] CBC-COMPLETE BLOOD CNT Collected: 01/08/2018 Status: F Source: EFREN NO DIFF 5:45 AM [facility] [place] TYPE CODE TESTS RESULT OUT OF RANGE REFERENCE UNITS LAB L100.1000 4.4-11.0 K/mm3 Normal WBC 5.4 LAB L100.1200 4.2-5.4 M/mm3 Low RBC 4.10 LAB L100.1300 12.0-15.0 g/dl Low HGB 10.3 LAB L100.1400 37-47 % Low HCT 34.2 LAB L100.1500 81-99 fL Normal MCV 83.4 LAB L100.1600 27.0-32.0 pg Low MCH 25.1 LAB L100.1700 32-36 g/gl Low MCHC 30.1 LAB L100.1810 11.6-14.6 % Normal RDW CV 14.3 LAB L100.1820 35.1-43.9 fl High RDW SD 44.0 LAB L100.1900 150-450 K/mm3 Low PLT 105 LAB L100.2000 6.2-12.0 fl Normal MPV 9.6 Performed By: #### L100.0500 #### [facility] [address] [place], [address] BASIC METABOLIC Collected: 01/08/2018 Status: F Source: ERFEN PROFILE (BMP) 5:45 AM [facility] [place] TYPE CODE TESTS RESULT OUT OF RANGE REFERENCE UNITS LAB L501.0100 74-106 mg/dL High GLU 117 Result Comment: Fasting Glucose result from 100 to 125 mg/dL suggests IMPAIRED HOMEOSTASIS per A.D.A. criteria. Please note revised GLUCOSE reference range effective 2017. LAB L501.1000 7-18 mg/dL Normal BUN 9 LAB L501.1100 0.55-1.02 mg/dL Normal CREAT,SERUM 0.97 Result Comment: The validity of the calculated GFR AND GFRAA in patients over 70 years has not been determined. Clinical correlation is essential. LAB L501.1110 >60 mL/min Normal EST GFR 63 Result Comment: Non- GFR Calc LAB L501.1115 >60 mL/min Normal EST GFR - AA 76 Result Comment: GFR Calc LAB L501.1255 ml/min Normal Estimated CRCL 53.92 LAB L501.1300 10-20 RATIO Low BUN/CRE 9.3 LAB L501.2200 8.5-10 mg/dL Low .1 CA 8.0 LAB L501.5300 136-14 mmol/L Normal 5 NA 141 LAB L501.5600 3.5-5. mmol/L Normal 1 K 3.7 LAB L501.5900 98-107 mmol/L Normal CL 103 LAB L501.6100 21.0-3 mmol/L Normal 2.0 CO2 30.0 LAB L501.6200 5-15 Normal GAP 8 Performed By: #### L500.2500 #### [facility] [address] [place], [address] OPERATIVE REPORT Observed: 01/07/2018 Status: F Source: [place]FREN 11:53 AM [facility] [place] [facility] Medical Records Department [address] [place] [address] Operative Report 01/07/18 1028 MR#: [id number] Acct: [id number] Name: KRANTHI CHEEMA Rep #: [id number] : 1960 57 From: Reddy Jose MENESES PCP: Blair Longoria MD Status: ADM IN Y Location: [place] [address] Report of Operation Date of Procedure: 01/07/18 Pre-Operative Diagnosis: Severe end-stage osteoarthritis left knee. Morbid obesity Post-Operative Diagnosis: Same Surgery/Procedure Performed:: Total knee arthroplasty left Description of Surgical Findings:: Eburnation of bone, varus alignment, periarticular osteophytes consistent with tricompartmental osteoarthritis rn document improvement: Koby Santos Type of Anesthesia:: Spinal Anesthesiologist: Sohail Yanes Special Medications: txa Specimen's removed: Bone and soft tissue Estimated Blood Loss (mL): 100 Fluids Replaced: See anesthesia report Description of Procedure: Implants: Styker triathlon size 4 PS femur, 3 tibia, 32 mm patella all cemented with Simplex. 9 mm posterior stabilized articulating surface Indications: Patient has severe end-stage osteoarthritis diagnosed via x-rays in the knee. They have failed all forms of conservative measures including activity modification, injections, anti-inflammatories, use of assistive device. The patient has pain that affects on a daily basis and prevents him from doing things that they enjoyed. They have elected to undergo the above procedure. The risks of the procedure were discussed at length and their questions were answered. Procedure description: The patient was greeted in the preoperative area. The left knee was then marked with a surgical marker. Patient was then taken to or [address]. They were administered a dose of antibiotics as well as tranexamic acid. Once adequate anesthesia was obtained and airway was secured to placed in supine position on the operating room table. A well-padded tourniquet was placed on the affected extremity. Leg was then prepped and draped in the usual sterile fashion from the knee down. Ioban was used on the skin. Surgical timeout was then performed and confirmed with all present. Six-inch Esmarch was used to examine the limb and tourniquet was then inflated to 250 mmHg. A longitudinal incision was then planned and carried out in the anterior aspect of the knee. The dissection was then carried the length of the incision the extensor mechanism was identified. Standard medial parapatellar arthrotomy was then performed revealing severe eburnation of bone and periarticular osteophytes. There is complete loss of cartilage especially in the medial compartment with varus alignment. Anterior fat pad was removed for visualization purposes and the anterior medial aspect of the tibia was skeletonized for exposure to the knee. The knee was then flexed the patella was inverted. Opening reamer was then used in the femur approximately 1 cm anterior to the attachment of the PCL. The intramedullary valgus wand was then placed in the femur set at 5 of valgus. The distal femoral cutting jig was then applied to the femur with anticipated resection of approximately 8 mm. This was then made with a oscillating saw. The sizing guide was then placed referencing off the posterior condyles and also reference off the epicondylar axis. This was measured and the appropriate size 4-in-1 cutting jig was then applied to the distal femur. Anterior posterior cuts were made followed by the anterior and posterior chamfer cuts. These bony pieces and fragments were removed and placed on the back table. Posterior retractor was then utilized and the tibia was subluxed anteriorly. Extramedullary tibial alignment jig was then applied to the tibia referencing off the medial one third of the tibial tubercle the anterior tibial spine the middle aspect of the tibiotalar joint. Also reference off patient's [place] slope. The tibial cutting jig was then pinned with anticipated resection of 2 mm off of the deficient medial tibial condyle. This cut was made with the oscillating saw. Once this was complete a laminar classifying machine operator was utilized in both medial lateral meniscus were removed and a posterior capsular osteophytes were also removed. Posterior capsule release was performed in the posterior capsule as well as the geniculate arteries are treated with the aqua Héctor. The tibia was incised and the appropriate sized tibial tray was then pinned. The femoral box cutting jig was then applied to the femur and the box was prepared removing a portion of the intercondylar notch. The femoral trial was then placed and the knee was trialed. Full flexion-extension were easily achieved. The knee seemed to balance quite nicely. Any remaining osteophytes were removed at this time. Once this was complete the patella was everted and the Kannan patella reaming device was then utilized the patella was then placed in the appropriate jig and reamer was then used to remove approximately 9 mm of the undersurface of the patella. A soft tissue remaining was in the way was removed and patella trial was then placed listed maintain excellent tracking using the no thumbs technique. The tibial tray at this point was punched to accommodate the fins of the final implant. At this point cement was mixed on the back table. The trial components were removed and the knee was copiously irrigated. Did use a cocktail of injection for postoperative pain control. The final components were then cemented in the standard fashion and excess cement was removed with cement removal tools and patellar clamp is placed in the patella. As the cement had cured in full extension tourniquet was deflated and hemostasis was perfect with Bovie cautery as well as the aqua Manus. Needle is once again trialed with different size polyethylenes to ensure the full range of motion was achieved as well as excellent balancing ligamentously was achieved. At this point the knee was copiously irrigated. Final implant was then inserted locking mechanism was engaged and confirmed to be locked. The arthrotomy was then closed with #1 Vicryl aggravate type fashion interrupted. Subcutaneous tissue was closed with 0 Vicryl and surgical jelena were placed in the skin. A occlusive silver impregnated dressing was then applied followed by well-padded sterile dressing secured with an Ernesto wrap. The patient was taken to the PACU in stable condition. No complications known at this time. Postoperatively we will maintain standard total knee postoperative protocol. The use of the physician branch assistant was integral during this procedure. They assisted with positioning placement of the tourniquet retracting closure and placement of the dressing. The procedure would have been much more difficult without their expertise and assistance - Admit VTE Documentation VTE Present on Admission: Yes VTE Mechan Device Prophylaxis: SCD's, Thigh High BETINA Hose VTE Pharm Prophylaxis ordered?: Yes 01/07/18 1153 <Electronically signed by Reddy Garcia DO> Date Reddy Garcia DO CC: Reddy Garcia DO; Blair Longoria MD Signed 12 LEAD ELECTROCARDIOGRAM Observed: 12/28/2017 Status: F Source: [place] 9:33 AM [facility] [place] [facility] Cardiovascular Services [address] [place] [address] EKG - [facility] 12/24/17 1244 MR#: [id number] Acct: [id number] Name: KRANTHI CHEEMA Rep #: [id number] : 1960 57 From: Mario Sky MD Attending Dr: Reddy Garcia DO Status: PRE IN Ordering Dr: Reddy Garcia DO Date: 12/24/17 Location: [facility] Sex: F C Admitted: Test Reason : Blood Pressure : / mmHG Vent. Rate : 062 BPM Atrial Rate : 062 BPM P-R Int : 182 ms QRS Dur : 074 ms QT Int : 384 ms P-R-T Axes : 053 020 058 degrees QTc Int : 389 ms Normal sinus rhythm Normal ECG Confirmed by MARIO SKY MD ([id number]), map editor KATHI LAU ([id number]) on 12/28/2017 9:33:43 AM Referred By: Reddy Garcia Confirmed By:MARIO SKY MD 12/28/17 0933 Date Mario Sky MD CC: Reddy Garcia DO; Blair Longoria MD Date Dictated: 12/24/17 1244 Date Transcribed: 12/24/171243 Lead Electrical Controls Engineer: Signed CBC-COMPLETE BLOOD CNT Collected: 12/24/2017 Status: F Source: [place] NO DIFF 1:50 [place] [facility] [place] CODE TESTS RESULT OUT OF RANGE REFERENCE UNITS LAB L100.1000 4.4-11.0 K/mm3 Normal WBC 5.1 LAB L100.1200 4.2-5.4 M/mm3 Normal RBC 5.04 LAB L100.1300 12.0-15.0 g/dl Normal HGB 12.5 LAB L100.1400 37-47 % Normal HCT 41.0 LAB L100.1500 81-99 fL Normal MCV 81.3 LAB L100.1600 27.0-32.0 pg Low MCH 24.8 LAB L100.1700 32-36 g/gl Low MCHC 30.5 LAB L100.1810 11.6-14.6 % Normal RDW CV 13.7 LAB L100.1820 35.1-43.9 fl Normal RDW SD 40.7 LAB L100.1900 150-450 K/mm3 Normal PLT 227 LAB L100.2000 6.2-12.0 fl Normal MPV 9.3 Performed By: #### L100.0500 #### [facility] [address] [place], [address] BASIC METABOLIC Collected: 12/24/2017 Status: F Source: [place] PROFILE (BMP) 1:50 PM [facility] [place] CODE TESTS RESULT OUT OF RANGE REFERENCE UNITS LAB L501.0100 74-106 mg/dL Normal GLU 93 Result Comment: Please note revised GLUCOSE reference range effective 2017. LAB L501.1000 7-18 mg/dL Normal BUN 14 LAB L501.1100 0.55-1.02 mg/dL High CREAT,SERUM 1.15 Result Comment: The validity of the calculated GFR AND GFRAA in patients over 70 years has not been determined. Clinical correlation is essential. LAB L501.1110 >60 mL/min Low EST GFR 51 Result Comment: Non- GFR Calc LAB L501.1115 >60 mL/min Normal EST GFR - AA 62 Result Comment: GFR Calc LAB L501.1255 ml/min Normal Estimated CRCL 45.48 LAB L501.1300 10-20 RATIO Normal BUN/CRE 12.2 LAB L501.2200 8.5-10 mg/dL Normal .1 CA 8.5 LAB L501.5300 136-14 mmol/L Normal 5 NA 141 LAB L501.5600 3.5-5. mmol/L Normal 1 K 4.0 LAB L501.5900 98-107 mmol/L Normal CL 106 LAB L501.6100 21.0-3 mmol/L Normal 2.0 CO2 26.0 LAB L501.6200 5-15 Normal GAP 9 Performed By: #### L500.2500 #### [facility] [address] [place], [address] Observed: 12/24/2017 Status: F Source: [place] MRSA/SAID SCREEN 1:50 PM [facility] [place] MRSA/SAID SCRN S. AUREUS S. aureus Positive MRSA MRSA Negative Performed By: #### M100.651 #### [facility] [place], [address] HSV 1/2 BY PCR Collected: 07/09/2017 Status: F Source: [place] 1:40 PM [facility] [place] CODE TESTS RESULT OUT OF RANGE REFERENCE UNITS LAB L3400.1650 Negative Normal HSV 1 Negative BY PCR LAB L3400.1655 Negative Normal HSV 2 Negative BY PCR Result Comment: This test was developed and its performance characteristics determined by [facility]. It has not been cleared or approved by the U.S. Food and Drug Administration. The FDA has determined that such clearance or approval is not necessary. This test is used for clinical purposes. It should not be regarded as investigational or research. Performed at: [address] [id number] Entry Level Sales Consultant: Boubacar Freeman MD, Phone: [phone] Performed By: #### L3400.1645 #### [facility] (refer to report for specific site) refer to report for address and phone number ALLERGIES ALLERGIES DATE TYPE / NAME / CODE REACTION SEVERITY SOURCE CODE 12/24/2017 Drug prochlorperazine restless Unknown [place] Allergy/41 /[id number](RXNO [facility] [id number] [place] [address]) Repository 12/24/2017 Drug morphine/[id number] Nausea Unknown [place] Allergy/41 545(RXNORM) [facility] [id number] [place] [address]) Repository 12/24/2017 Drug clavulanic Upset Stomach Unknown [place] Allergy/41 acid/[id number]( [facility] [id number] [place] [address]) Repository 12/24/2017 Drug adhesive Rash Unknown [place] Allergy/41 tape/[id number]( [address]) Repository 12/24/2017 Drug amoxicillin/F006 Upset Stomach Unknown [place] Allergy/41 341861(RXNORM) [address]) Repository 12/24/2017 Drug promethazine/F00 restless Unknown [place] Allergy/41 6255450(RXNORM) [address]) Repository 12/24/2017 Drug sertraline/F0060 DIZZY Unknown [place] Allergy/41 87618(RXNORM) [facility] [id number]([facility]) Repository 12/24/2017 Drug meperidine/F0060 hallucinations Unknown [place] Allergy/41 07602(RXNORM) [facility] [id number]([facility]) Repository 12/24/2017 Drug dicyclomine/F006 restless Unknown [place] Allergy/41 691219(RXNORM) [facility] [id number]([facility]) Repository 12/24/2017 Drug metoclopramide/F restless Unknown [place] Allergy/41 [id number](RXNORM [facility] 1465963[facility]) Repository ENCOUNTERS ENCOUNTERS ADMIT/DISCHARGE ACCOUNT NUMBER ADMITTING ENCOUNTER LOCATION SOURCE CLASS 05/28/2018 [id number] [facility] ding:LABSPEC Repository 02/12/2018 [id number] [facility] ding:LABSPEC Repository 02/05/2018 [id number] [facility] ding:LAB Repository 01/11/2018/05/28/20 [id number] Ambulatory BBuilding:PH [place] [facility] Repository 01/07/2018/01/10/20 [id number] [facility] Ef[place] [facility] ding:[id number] Repository : LI408Tse: 1 12/24/2017/01/10/20 [id number] Ambulatory BMSBuilding: Efren 18 [facility] Repository 07/09/2017 [id number] Ambulatory [facility] ding:LABSPEC Repository PAYERS PAYERS ENCOUNTER GUARANTOR PAYER SUBSCRIBER SOURCE 05/28/2018 KRANTHI CHEEMA805 Primary KRANTHI PEACE Insurance:HUMANA WILLSDOB: [place], [place] [facility] [id number] [address]Bpl: . () Number: Repository [id number] Date:[id number] [address]FM: 05/28/2018 Secondary NOT GIVENUNK [place] Insurance:SELF PAY [facility] Number: Effective Repository Date:2018-05-28 02/12/2018 KRANTHI BOBS805 Primary KRANTHI K [place] [employer] Insurance:HUMANA WILLSDOB[place] COMMERCIALPolicy [id number] Hospital [address]Jng: . (HP) Number: Repository [id number] Date:[id number]WP: 02/12/2018 Secondary NOT GIVENUNK [place] Insurance:SELF PAY [facility] Number: Effective Repository Date:2018-02-12 02/05/2018 KRANTHI BOBS805 Primary KRANTHI K [place] [employer] Insurance:HUMANA WILLSDOB: [place] COMMERCIAL[place] [id number] Hospital [address]Mcr: . (HP) Number: Repository [id number] Date:[id number]4601WP: 02/05/2018 Secondary NOT GIVENUNK [place] Insurance:SELF PAY [facility] Number: Effective Repository Date:2018-02-05 01/11/2018 KRANTHI WILLSDOB: Primary KRANTHI WILLSDOB: [place] [employer] Insurance:HUMANA [id number] [facility] Repository TAVARES Ching Number: TAVARES Ching [id number]: (063) [id number] [address]Tzr: (HP) Date:2018-01-08 [phone] ()Tel: ([phone]) Name:CPO Paez [id number] () [address] [place] [address]WP: 01/07/2018 KRANTHI BOBS805 Primary KRANTHI K [place] [employer] Insurance:HUMANA WILLSDOB: [place] COMMERCIAL[place] [id number] Hospital [address]Ctl: . (HP) Number: Repository [id number] Date:[id number] [address] [place] [address]TK: 01/07/2018 Secondary NOT GIVENUNK [place] Insurance:SELF PAY [facility] Number: Effective Repository Date:2017-12-14 12/24/2017 KRANTHI BOBS805 Primary KRANTHI K [place] [employer] Insurance:HUMANA WILLSDOB: [facility] [id number] Hospital [address]Rzd: . (HP) Number: Repository [id number] Date:[id number] [address]NH: 12/24/2017 Secondary NOT GIVENUNK [place] Insurance:SELF PAY [facility] Number: Effective Repository Date:2017-12-24 07/09/2017 KRANTHISKYE [id number] Primary KRANTHI WILLSDOB: [place] [employer] Insurance:HUMANA [id number] [address]Nxk: . (HP) Number: Repository [id number] Date:[id number] [address]HU: 07/09/2017 Secondary NOT GIVENUNK [place] Insurance:SELF PAY [facility] Number: Effective Repository Date:2017-07-09
== END ==
PROVIDERS: Referring Provider Obstetrics & Gynecology; Visit Provider Obstetrics & Gynecology
DX: N90.4 Leukoplakia of vulva (principal); L90.0 Lichen sclerosus et atrophicus; L85.9 Epidermal thickening, unspecified
CPT/HCPCS: 88305; 88312

== ENCOUNTER → 2019-02-13 | Outpatient (CLI) | payer OTHER, SELFPAY ==
[2018-01-07 14:49] VITALS: BMI 47.7
[2019-02-17 09:07] LABS: HSV 1 By PCR Negative (Negative)
[2019-02-17 11:57] LABS: HSV 2 By PCR Negative (Negative)
== END | disposition home or self-care (01) ==
LOC: LABSPEC 16:09
PROVIDERS: Visit Provider Obstetrics & Gynecology
DX: N39.0 Urinary tract infection, site not specified (principal); B00.9 Herpesviral infection, unspecified
CPT/HCPCS: 87086; 87088; 87529

== ENCOUNTER → 2019-02-14 | Outpatient (CLI) | payer OTHER, SELFPAY ==
--- NOTE | 2019-02-14 12:46 | BI_ITS ---
MAMMOGRAPHY - BILATERAL SCREENING REASON FOR EXAM: Female, 58 years old. Routine annual screening examination. PERTINENT HISTORY: Non-contributory. TECHNIQUE: Digital bilateral breast josue (3D mammographic acquisition) in the CC and MLO projections. 2-D mediolateral oblique (MLO) and craniocaudad (CC) views of both breasts were obtained. CAD: Full Field Digital Mammography with Computer Added Detection was performed. COMPARISON: Comparison is made with prior unsightly examination dated December 11, 2015. FINDINGS: Breast Composition: The breasts are almost entirely fatty. There now is evidence of a 9 mm x 7 mm well-defined nodule in the superior lateral portion of the right breast. Correlation with ultrasound is recommended. No other significant abnormalities are identified. BI/SCREEN MAMM (CAD) W/JOSUE BILAT IMPRESSION: New subcentimeter nodule in the lateral upper aspect of the right breast as described. Correlation with ultrasound of the right breast is recommended for further evaluation. ASSESSMENT CATEGORY: BIRADS Category 0: Incomplete. Need additional imaging evaluation. A letter regarding these results will be sent to the patient by the facility within 30 days. Approximately 10% of breast cancers are not detected by mammography. A normal mammogram should not delay biopsy of a clinically suspicious abnormality. [id number] Electronically Signed: Jairon Machuca, at 8:59 EDT , Service support ,
== END | disposition home or self-care (01) ==
LOC: OPBI 12:45
PROVIDERS: Referring Provider Obstetrics & Gynecology; Visit Provider Obstetrics & Gynecology
DX: Z12.31 Encounter for screening mammogram for malignant neoplasm of breast (principal)
CPT/HCPCS: 77063; 77067

== ENCOUNTER → 2019-03-04 | Outpatient (CLI) | payer OTHER, SELFPAY ==
--- NOTE | 2019-03-04 10:50 | US_ITS ---
STUDY: ULTRASOUND BREAST - RIGHT REASON FOR EXAM: Female, 58 years old. Abnormal screening mammogram. TECHNIQUE: Axial and longitudinal images of the RIGHT breast were performed with a high resolution ultrasound transducer. COMPARISON: Comparison is made with prior study dated February 14, 2019. FINDINGS: RIGHT Breast: The mammographic abnormality corresponds to a 6 mm x 5 mm x 3 mm superficial cyst at the 12:00 position breast at 3 cm from the nipple. Adjacent to this, there is a 3 mm x 2 mm x 3 mm cyst. US/Breast Limited Unilateral IMPRESSION: 2 small cysts are seen at the 12:00 position of the breast as described. ASSESSMENT CATEGORY: BIRADS Category 2: Benign. A letter regarding these results will be sent to the patient by the facility within 30 days. Electronically Signed: Jairon Machuca, at 12:36 EDT , Service support ,
== END | disposition home or self-care (01) ==
LOC: OPUS 10:48
PROVIDERS: Referring Provider Obstetrics & Gynecology; Visit Provider Obstetrics & Gynecology
DX: N63.10 Unspecified lump in the right breast, unspecified quadrant (principal)
CPT/HCPCS: 76642

== ENCOUNTER → 2020-05-10 15:10 | Outpatient (CLI) | payer OTHER, SELFPAY ==
--- NOTE | 2020-05-10 15:14 | BI_ITS ---
MAMMOGRAPHY - BILATERAL SCREENING REASON FOR EXAM: Female, 59 years old. Routine annual screening examination. PERTINENT HISTORY: Non-contributory. TECHNIQUE: Digital bilateral breast josue (3D mammographic acquisition) in the CC and MLO projections. 2-D mediolateral oblique (MLO) and craniocaudad (CC) views of both breasts were obtained. CAD: Full Field Digital Mammography with Computer Added Detection was performed. COMPARISON: Comparison is made with prior study dated 02/14/2019. FINDINGS: Breast Composition: The breasts are almost entirely fatty. There are no dominant masses or suspicious calcifications. Stable 1.1 cm x 0.6 cm nodular density in the upper lateral portion of the right breast suggestive of a small lymph node. Stable 9 mm x 7 mm well-defined nodule in the deep central portion of the left breast. This was demonstrated to be a small cyst on prior sonogram. Stable benign-appearing bilateral axillary lymph nodes. No other significant abnormalities are identified. There has been no significant change since the prior study. BI/SCREEN MAMM (CAD) W/JOSUE BILAT IMPRESSION: Stable bilateral screening mammogram. Yearly follow-up mammogram recommended. (A) ASSESSMENT CATEGORY: BIRADS Category 2: Benign. A letter regarding these results will be sent to the patient by the facility within 30 days. Approximately 10% of breast cancers are not detected by mammography. A normal mammogram should not delay biopsy of a clinically suspicious abnormality. [id number] Electronically Signed: Jairon Machuca, at 15:59 EST , Service support ,
== END ==
PROVIDERS: Referring Provider Obstetrics & Gynecology; Visit Provider Obstetrics & Gynecology
DX: Z12.31 Encounter for screening mammogram for malignant neoplasm of breast (principal)
CPT/HCPCS: 77063; 77067

== ENCOUNTER 2020-09-16 14:52 | Outpatient (RCR) | payer OTHER, SELFPAY ==
[2018-01-07 14:49] VITALS: BMI 47.7
[2020-09-16] MEDS: COVID-19 VACC, MRNA(PFIZER)/PF 30 MCG/0.3 ML SYRINGE IM (10:06)
[2020-10-07] MEDS: COVID-19 VACC, MRNA(PFIZER)/PF 30 MCG/0.3 ML SYRINGE IM (10:08)
== END 2020-09-16 23:59 ==
LOC: IMMUN 14:52
PROVIDERS: Visit Provider Family Medicine
DX: Z23 Encounter for immunization (principal)
CPT/HCPCS: 0001A; 0002A; 91300

== ENCOUNTER → 2021-05-11 15:14 | Outpatient (CLI) | payer OTHER, SELFPAY ==
--- NOTE | 2021-05-11 15:17 | BI_ITS ---
MAMMOGRAPHY - BILATERAL SCREENING REASON FOR EXAM: Female, 60 years old. Routine annual screening examination. PERTINENT HISTORY: Non-contributory. TECHNIQUE: Digital bilateral breast josue (3D mammographic acquisition) in the CC and MLO projections. 2-D mediolateral oblique (MLO) and craniocaudad (CC) views of both breasts were obtained. CAD: Full Field Digital Mammography with Computer Added Detection was performed. COMPARISON: Comparison is made with prior study dated 05/10/2020 and 02/14/2019. FINDINGS: Breast Composition: The breasts are almost entirely fatty. There are no dominant masses or suspicious calcifications. Stable benign-appearing bilateral axillary lymph nodes. Stable 1.1 cm x 0.6 cm well-defined nodule in the upper lateral portion right breast suggestive of a small lymph node. No other significant abnormalities are identified. There has been no significant change since the prior study. BI/SCRN MAMM (CAD)W/JOSUE BILAT IMPRESSION: Stable bilateral screening mammogram. Yearly follow-up mammogram recommended. (A) ASSESSMENT CATEGORY: BIRADS Category 2: Benign. A letter regarding these results will be sent to the patient by the facility within 30 days. Approximately 10% of breast cancers are not detected by mammography. A normal mammogram should not delay biopsy of a clinically suspicious abnormality. [id number] Electronically Signed: Jairon Machuca MD at 8:11 EST , Service support ,
== END ==
PROVIDERS: Referring Provider Obstetrics & Gynecology; Visit Provider Obstetrics & Gynecology
DX: Z12.31 Encounter for screening mammogram for malignant neoplasm of breast (principal)
CPT/HCPCS: 77063; 77067

== ENCOUNTER 2023-03-19 17:19 | Outpatient (RCR) | payer OTHER, SELFPAY | END 2023-03-19 19:00 | disposition home or self-care (01) | LOC: PT 17:19 | PROVIDERS: Referring Provider Specialist; Visit Provider Specialist | DX: M25.561 Pain in right knee (principal) ==